=== PATIENT | male | born 1965 | race Caucasian/White ===

== ENCOUNTER 2018-03-03 07:16 | Day surgery (SDC) | payer MEDICARE, MEDICAID ==
[~2018-03-03] VITALS: Ht 157.5 cm; Wt 73.0 kg
[2018-03-03] VITALS (8 sets, daily range): BP systolic 122–140; BP diastolic 58–87
[~2018-03-03 07:16] MED LIST: ARIP15TA3 PO; CHLO100T9 PO; CHOL10002 PO; CICL34.62 TP; DIAZ10TA PO; DIVA500T4 PO; GUAI473S11 PO; LAMO100T2 PO; LEVO50TA8 PO; MULT-1085 PO; OXYB15TA PO; ZONI100C6 PO; diazepam 5mg tablet PO ONE; famotidine 20mg tablet PO ONE; ringers solution, lacted 1,000 ML IV SCH
[2018-03-03] MEDS ORDERED: midazolam 2 mg/2 ml injection ONE (07:51)
[2018-03-03] MEDS ORDERED: fentaNYL/PF 50MCG/1 ML 2ML syringe ONE (07:51)
[2018-03-03 08:26] LABS: ISTAT ANION GAP 10 (8-12); ISTAT BUN 13 mg/dL (6-19); ISTAT CL 97 mmol/L (99-107); ISTAT CREATININE 0.7 mg/dL (0.8-1.3); ISTAT GLUCOSE 78 mg/dL (70-104); ISTAT HGB 15.6 g/dl (14.0-18.0); ISTAT Hct 46 %PCV (42-52); ISTAT K 4.3 mmol/L (3.5-5.1); ISTAT NA 135 mmol/L (135-145); ISTAT TOTAL CO2 28 mmol/L (24-32); ISTAT eGFR > 90 ML/MIN; POC BUN/CREATININE RATIO 18.6 (5.4-32.0)
[2018-03-03] MEDS ORDERED: LIDOcaine 1%/PF 5ML 10 MG/ML VIAL ONE (08:30)
[2018-03-03] MEDS ORDERED: sevoflurane 250ml liquid IH ONE (08:30)
[2018-03-03] MEDS ORDERED: ondansetron/PF 4mg/2ml inj ONE (09:52)
[2018-03-03] MEDS ORDERED: glycopyrrolate 0.2mg/ml inj ONE (09:52)
[2018-03-03] MEDS ORDERED: neostigmine methylsulfate 1 MG/ML 10ml vial ONE (09:52)
[2018-03-03] MEDS ORDERED: propofol inj 20 ML IV ONE (09:52)
[2018-03-03] MEDS ORDERED: rocuronium 10mg/ml inj IV ONE (09:52)
[2018-03-03] MEDS ORDERED: ePHEDrine 50MG/ML INJ. ONE (09:52)
[2018-03-03] MEDS ORDERED: labetalol 5mg/ml 20ml inj. IV ONE (09:52)
[2018-03-03] MEDS ORDERED: dexamethasone sod phosphate 4mg/ml inj. ONE (09:52)
[2018-03-03] MEDS ORDERED: ringers solution, lacted 1,000 ML IV SCH (10:16)
[2018-03-03] MEDS ORDERED: meperidine/PF 25mg/ml syringe IV PRN ×3 (10:20)
[2018-03-03] MEDS ORDERED: morphine 4 MG/ML inj SYRINge IV PRN ×2 (10:20)
[2018-03-03] MEDS ORDERED: ondansetron/PF 4mg/2ml inj IV PRN (10:20)
[2018-03-03] MEDS ORDERED: naloxone 0.4 mg/ml inj ONE (10:29)
== END 2018-03-03 11:07 | disposition home or self-care (01) ==
LOC: PAS 07:16
PROVIDERS: ATTEND Dentist
DX: K05.30 Chronic periodontitis, unspecified (principal); E78.2 Mixed hyperlipidemia; E87.1 Hypo-osmolality and hyponatremia; F72 Severe intellectual disabilities; E03.9 Hypothyroidism, unspecified; F39 Unspecified mood [affective] disorder; Z86.69 Personal history of other diseases of the nervous system and sense organs; Z88.8 Allergy status to other drugs, medicaments and biological substances; Z79.899 Other long term (current) drug therapy
CPT/HCPCS: 41899; 80047; J1100; J2250; J2310; J2405; J2704; J2710; J3010; A7000; J2001; J3490; J7120

== ENCOUNTER 2021-07-23 10:29 | Emergency (ER) | payer MEDICARE, MEDICAID ==
[~2021-07-23] VITALS: Ht 162.6 cm; Wt 84.3 kg
[~2021-07-23 10:29] MED LIST changes: -OXYB15TA PO; +OXYB15TA19 PO; +ZONI100C31 PO; -ZONI100C6 PO; -diazepam 5mg tablet PO ONE; -famotidine 20mg tablet PO ONE; -ringers solution, lacted 1,000 ML IV SCH
[2021-07-23 10:59] VITALS: BP 114/69
[2021-07-23] MEDS ORDERED: acetaminophen 325mg tablet PO ONE (11:25)
== END 2021-07-23 12:24 | disposition home or self-care (01) ==
LOC: ER 10:30
DX: S01.01XA Laceration without foreign body of scalp, initial encounter (principal); R62.50 Unspecified lack of expected normal physiological development in childhood; E78.00 Pure hypercholesterolemia, unspecified; E03.9 Hypothyroidism, unspecified; Z86.69 Personal history of other diseases of the nervous system and sense organs; Z88.8 Allergy status to other drugs, medicaments and biological substances; Z79.899 Other long term (current) drug therapy; W19.XXXA Unspecified fall, initial encounter; Y93.89 Activity, other specified; Y92.89 Other specified places as the place of occurrence of the external cause; Y99.8 Other external cause status
CPT/HCPCS: 12002; 70450; 99284

== ENCOUNTER 2023-11-03 09:56 | Emergency (ER) | payer MEDICARE, MEDICAID ==
[~2023-11-03] VITALS: Ht 175.3 cm; Wt 83.6 kg
[~2023-11-03 09:56] MED LIST changes: +DIAZ-546 PO; -DIAZ10TA PO; -ZONI100C31 PO; +ZONI100C87 PO
[2023-11-03 10:11] VITALS: TEMP 98.3
[2023-11-03 11:20] LABS: BASOPHILS # (AUTO) 0.1 X10'3 (0-0.2); BASOPHILS % (AUTO) 0.7 % (0-1); EOSINOPHILS # (AUTO) 0.3 X10'3 (0-0.9); EOSINOPHILS % (AUTO) 3.4 % (0-6); HEMATOCRIT 34.1 % (42.0-52.0); LYMPHOCYTES # (AUTO) 1.5 X10'3 (1.1-4.8); LYMPHOCYTES % (AUTO) 19.8 % (21-51); MEAN CORPUSCULAR HEMOGLOBIN 26.2 PG (27.0-31.0); MEAN CORPUSCULAR HGB CONC 32.4 g/dL (33.0-36.5); MEAN CORPUSCULAR VOLUME 81.1 FL (78-98); MEAN PLATELET VOLUME 6.7 FL (7.4-10.4); MONOCYTES # (AUTO) 1.1 X10'3 (0-0.9); MONOCYTES % (AUTO) 14.5 % (2-12); NEUTROPHILS # (AUTO) 4.6 X10'3 (1.8-7.7); NEUTROPHILS % (AUTO) 61.6 % (42-75); PLATELET COUNT 245 X10'3 (140-440); RED BLOOD COUNT 4.21 X10'6 (4.70-6.10); RED CELL DISTRIBUTION WIDTH 15.9 % (11.5-14.5); WHITE BLOOD COUNT 7.5 X10'3 (4.5-11.0)
[2023-11-03 12:28] LABS: ALANINE AMINOTRANSFERASE 20 U/L (12-78); ALBUMIN 2.7 G/DL (3.4-5.0); ALBUMIN/GLOBULIN RATIO 0.6 (1.1-1.5); ALKALINE PHOSPHATASE 207 IU/L (46-116); ANION GAP 8 (8-16); ASPARTATE AMINO TRANSFERASE 64 U/L (10-37); BILIRUBIN,TOTAL 0.4 MG/DL (0.1-1.0); BLOOD UREA NITROGEN 5 MG/DL (7-18); BUN/CREATININE RATIO 9.8 (10.0-20.0); CHLORIDE 97 MMOL/L (99-107); CREATININE 0.51 MG/DL (0.60-1.10); GLUCOSE 89 MG/DL (70-104); SODIUM 129 MMOL/L (135-145); TOTAL CARBON DIOXIDE 24.1 MMOL/L (24-32); TOTAL PROTEIN 7.2 G/DL (6.4-8.2); eCRCL 162 ML/MIN; eGFR > 90 ML/MIN
[2023-11-03 12:36] LABS: PRO BRAIN NATRIURETIC PEPTIDE 172 PG/ML (0-125)
[2023-11-03 13:30] LABS: BILIRUBIN,URINE NEGATIVE (Neg); CLARITY,URINE SLIGHTLY CLOUDY (Clear); COLOR,URINE YELLOW (Yellow); GLUCOSE, URINE NEGATIVE (Neg); KETONES,URINE NEGATIVE (Neg); LEUKOCYTE ESTERASE ,URINE NEGATIVE (Neg); NITRITES, URINE NEGATIVE (Neg); OCCULT BLOOD,URINE NEGATIVE (Neg); PH,URINE 7.5 (4.8-8.0); PROTEIN,URINE NEGATIVE (Neg)
[2023-11-03 13:35] LABS: UA COLLECTION TYPE NON-SPECIFIED
[2023-11-03 13:36] LABS: SQUAMOUS EPITHELIAL CELL,UR FEW /LPF (FEW)
[2023-11-03 13:37] LABS: AMORPHOUS PHOSPHATES 1+; BACTERIA,URINE NONE SEEN /HPF (Neg); RBC,URINE 0-2 /HPF (0-2); WBC,URINE 0-4 /HPF (0-4)
[2023-11-03 14:15] VITALS: BP 100/63; PULSE 63; RESP 16; O2SAT 96
== END 2023-11-03 14:17 | disposition home or self-care (01) ==
LOC: ER 09:57
DX: R53.1 Weakness (principal); T42.4X5A Adverse effect of benzodiazepines, initial encounter; E78.00 Pure hypercholesterolemia, unspecified; E03.9 Hypothyroidism, unspecified; Z88.8 Allergy status to other drugs, medicaments and biological substances; Z79.899 Other long term (current) drug therapy; Z79.2 Long term (current) use of antibiotics; Y92.89 Other specified places as the place of occurrence of the external cause
CPT/HCPCS: 36415; 71045; 80053; 81001; 83880; 84484; 85025; 93005; 99285